=== PATIENT | female | born 1975 | race Caucasian/White ===

== ENCOUNTER 2023-10-17 13:55 | Emergency (ER) | payer MEDICAID ==
[~2023-10-17] VITALS: Ht 162.6 cm; Wt 62.7 kg
[2023-10-17] MEDS ORDERED: COLL1CAP PO (14:17)
[2023-10-17] MEDS ORDERED: CHOL400C8 PO (14:17)
[2023-10-17] MEDS ORDERED: MAGN400T57 PO (14:17)
[2023-10-17 14:20] VITALS: BP 123/65; PULSE 82; RESP 18; TEMP 98.9
[2023-10-17] MEDS ORDERED: OxyCODONE HCL/ACETAMINOPHEN 5-325 MG TABLET PO ONE (16:15)
[2023-10-17] MEDS ORDERED: LORazepam 1 MG TABLET PO ONE (16:15)
[2023-10-17] MEDS ORDERED: IBUP-1492 PO (17:42)
[2023-10-17] MEDS ORDERED: PERCT PO (17:43)
== END 2023-10-17 18:50 | disposition home or self-care (01) ==
LOC: EMS 13:55
DX: S52.502A Unspecified fracture of the lower end of left radius, initial encounter for closed fracture (principal); W19.XXXA Unspecified fall, initial encounter; Y93.89 Activity, other specified; Y92.89 Other specified places as the place of occurrence of the external cause; Y99.8 Other external cause status
CPT/HCPCS: 24600; 99284; 73100-TC; 73110-TC; 73130-TC; Z7502; Z7610